=== PATIENT | female | born 1930 | race Caucasian/White ===

== ENCOUNTER 2016-08-07 10:16 | Emergency (ER) | payer MEDICARE, BC ==
--- NOTE | 2016-08-07 12:26 | UC ---
Respiratory Complaint HPI - HPI Summary HPI Summary: 10 DAYS OF PRODUCTIVE COUGH, ST, CONGESTION, SINUS PRESSURE AND EAR FULLNESS. NO FEVER, N/V/D. IS C/O SLIGHT CHEST DISCOMFORT AND SOME DIZZINESS THIS MORNING THAT HAS RESOLVED. - History of Current Complaint Chief Complaint: UCGeneralIllness Stated Complaint: RESP COMPLAINT Time Seen by Provider: 08/07/16 12:05 Hx Obtained From: Patient Onset/Duration: Gradual Onset, Lasting Days, Still Present Timing: Constant Severity Initially: Moderate Severity Currently: Moderate Pain Intensity: 0 Pain Scale Used: 0-10 Numeric Character: Cough: Productive Aggravating Factors: Nothing Alleviating Factors: Nothing Associated Signs And Symptoms: Positive: Dizziness, URI, Nasal Congestion, Sinus Discomfort. Negative: Dyspnea, Fever, Chills, Pleuritic Chest Pain, Wheezing, Hemoptysis, Calf Pain, Calf Swelling, Edema, Hoarseness - Allergies/Home Medications Allergies/Adverse Reactions: Allergies Allergy/AdvReac Type Severity Reaction Status Date / Time Amoxicillin Allergy Unknown Verified 08/07/16 10:53 Reaction Details MSG Allergy Headache Uncoded 08/07/16 10:53 Home Medications: Home Medications Ascorbic Acid TAB* [Vitamin C TAB*] 1 tab PO DAILY 08/07/16 [History Confirmed 08/07/16] Aspirin [Aspirin Dr] 1 tab PO DAILY 08/07/16 [History Confirmed 08/07/16] Cholecalciferol TAB* [Vitamin D TAB*] 1 tab PO DAILY 08/07/16 [History Confirmed 08/07/16] Hydrochlorothiazide TAB* [Hydrodiuril TAB*] 12.5 mg PO DAILY 08/07/16 [History Confirmed 08/07/16] Nasal Wash [Alkalol] 08/07/16 [History] Nyquil 08/07/16 [History] Pseudoephedrine TAB* [Sudafed TAB*] 120 mg 08/07/16 [History] PMH/Surg Hx/FS Hx/Imm Hx Cardiovascular History Of: Reports: Hypertension - Surgical History Surgical History: Yes Surgery Procedure, Year, and Place: HYSTERECTOMY. BILATERAL FOOT SURGERIES, REMOVAL OF CALUSES. TONSILS. CATARACT - Family History Known Family History: Positive: Cardiac Disease, Hypertension - Social History Alcohol Use: Daily Alcohol Amount: 1 GLASS WINE Substance Use Type: None Smoking Status (MU): Former Smoker When Did the Patient Quit Smoking/Using Tobacco: 42 YRS AGO Review of Systems Constitutional: Negative ENT: Sore Throat, Ear Ache, Nasal Discharge Respiratory: Cough Cardiovascular: Chest Pain Gastrointestinal: Negative Neurological: Headache All Other Systems Reviewed And Are Negative: Yes Physical Exam Triage Information Reviewed: Yes Appearance: Well-Appearing, No Pain Distress, Well-Nourished Vital Signs: Initial Vital Signs Temp 98.4 F 08/07/16 10:59 Pulse 90 08/07/16 10:59 Resp 18 08/07/16 10:59 BP 147/78 08/07/16 10:59 Pulse Ox 100 08/07/16 10:59 Vital Signs Reviewed: Yes Eyes: Positive: Conjunctiva Clear ENT: Positive: Pharynx normal, TMs normal Neck: Positive: Supple, Nontender, No Lymphadenopathy Respiratory Exam: Normal Cardiovascular Exam: Normal Abdomen Description: Positive: Soft Musculoskeletal: Positive: No Edema Neurological: Positive: Alert Psychological: Positive: Normal Response To Family, Age Appropriate Behavior Skin: Negative: rashes UC Diagnostic Evaluation - Laboratory O2 Sat by Pulse Oximetry: 100 Respiratory Course/Dx - Course Course Of Treatment: PT SX LIKELY DUE TO ACUTE ILLNESS BUT GIVEN PT COMPLAINT OF MILD CHEST DISCOMFORT AND DIZZINESS DISCUSSED POSSIBILITY OF CARDIAC CONDITION ON TOP OF RESPIRATORY ILLNESS. LOW SUSPICION FOR ACUTE CORONARY SYNDROME BUT PT ADVISED TO GO TO ER WITHOUT FAIL IF SX WORSEN AND TO F/U WITH PCP NEXT WEEK TO DISCUSS ROUTINE CARDIAC EVALUATION. PT AND DAUGHTER VERBALIZED UNDERSTANDING AND AGREE WITH PLAN. - Differential Dx/Diagnosis Provider Diagnoses: ACUTE BRONCHITIS Discharge - Discharge Plan Condition: Stable Disposition: HOME Prescriptions: Cephalexin CAP* [Keflex 500 CAP*] 1,000 mg PO BID #[id number] Patient Education Materials: Acute Bronchitis (ED) Referrals: Og Fountain MD [Primary Care Provider] - 1 Week Additional Instructions: NO CLEAR BACTERIAL INFECTION ON EXAM TODAY. LIKELY VIRAL ILLNESS, BUT GIVEN LENGTH OF TIME OF ILLNESS AND AGE WE WILL TREAT WITH ANTIBIOTICS. FOLLOW-UP WITH DR. FOUNTAIN NEXT WEEK. GO TO THE ER WITHOUT FAIL IF YOU DEVELOP CHEST PAIN, SHORTNESS OF BREATH, NAUSEA , WORSENING DIZZINESS OR ANY OTHER CONCERNING SYMPTOMS.
== END 2016-08-07 12:39 | disposition home or self-care (01) ==
LOC: UCEAST 10:16
DX: J20.9 Acute bronchitis, unspecified (principal); Z88.0 Allergy status to penicillin; I10 Essential (primary) hypertension; Z79.82 Long term (current) use of aspirin; Z87.891 Personal history of nicotine dependence
CPT/HCPCS: 99212; G0463